=== PATIENT | male | born 1960 | race African-American/Black ===

== ENCOUNTER 2023-11-08 10:27 | Inpatient (IN) | payer OTHER ==
[2023-11-08 11:35] VITALS: BMI 28.8
[2023-11-08] MEDS ORDERED: BENZONATATE 200 MG CAPSULE PO PRN (12:15)
[2023-11-08] MEDS ORDERED: POLYETHYLENE GLYCOL (HEALTHYLAX) 3350 17 GM PACKET PO PRN (12:15)
[2023-11-08] MEDS ORDERED: BENZOCAINE/MENTHOL (CHLORASEPTIC ) LOZENGE MM PRN (12:15)
[2023-11-08] MEDS ORDERED: guaiFENesin 600 MG TABLET.ER (FP) PO PRN (12:15)
[2023-11-08] MEDS ORDERED: MAGNESIUM HYDROX 2400MG/30ML ORAL SUSPENSION 30 ML CUP PO PRN (12:15)
[2023-11-08] MEDS ORDERED: IBUPROFEN 600 MG TABLET (FP) PO PRN (12:15)
[2023-11-08] MEDS ORDERED: METHOCARBAMOL 500 MG TABLET PO PRN (12:15)
[2023-11-08] MEDS ORDERED: NALOXONE HCL 0.4 MG/ML VIAL IM PRN (12:15)
[2023-11-08] MEDS ORDERED: hydrOXYzine PAMOATE 25 MG CAPSULE (FP) PO PRN (12:15)
[2023-11-08] MEDS ORDERED: BISMUTH SUBSALICYLATE 262 MG/15 ML BTL PO PRN (12:15)
[2023-11-08] MEDS ORDERED: IBUPROFEN 400 MG TABLET (FP) PO PRN (12:15)
[2023-11-08] MEDS ORDERED: MAG HYDROX/AL HYDROX/SIMETH 30 ML UNIT-DOSE CUP PO PRN (12:15)
[2023-11-08] MEDS ORDERED: NALOXONE (NARCAN) HCL 4 MG/0.1 ML SPRAY NS PRN (12:15)
[2023-11-08] MEDS ORDERED: DICYCLOMINE HCL 10 MG CAPSULE PO PRN (12:15)
[2023-11-08] MEDS ORDERED: LORazepam 2 MG TABLET PO PRN (12:22)
[2023-11-08] MEDS ORDERED: PRENATAL VITAMINS W/ FOLIC ACID TABLET (FP) PO ONE (14:12)
[2023-11-08] MEDS: PRENATAL VITAMINS W/ FOLIC ACID TABLET (FP) PO SCH (14:14)
[2023-11-08] MEDS: diazePAM 5 MG TABLET PO SCH (17:55)
[2023-11-08] MEDS: LOPERAMIDE HCL 2 MG CAPSULE PO PRN (18:00)
[2023-11-08] MEDS: FAMOTIDINE 20 MG TABLET PO PRN (18:12)
[2023-11-08] MEDS: SUCRALFATE 1 GM TABLET (FP) PO SCH (19:00)
[2023-11-08] MEDS: RIVAROXABAN 20 MG TABLET PO SCH (19:30)
[2023-11-08] MEDS: THIAMINE 100 MG TABLET PO SCH (22:35)
[2023-11-08] MEDS: ATORVASTATIN CA 80 MG TABLET (FP) PO SCH (22:35)
[2023-11-08] MEDS: QUEtiapine FUMARATE 100 MG TABLET (FP) PO PRN (22:36)
[2023-11-09] MEDS: DIPHENOXYLATE 2.5/ATROPINE.025 1 COMBO TABLET PO ONE (09:39)
[2023-11-09] MEDS: ASPIRIN 81 MG CHEWABLE TABLETS PO SCH (10:05)
[2023-11-09] MEDS: amLODIPine BESYLATE 10 MG TABLET (FP) PO SCH (10:05)
[2023-11-09 11:26] LABS: HEMATOCRIT 40.5 % (35.4-49); HEMOGLOBIN 13.9 GM/dL (11.7-16.9); MCH 32.8 pg (25.7-33.7); MCHC 34.2 g/dl (32.0-35.9); MEAN CELL VOLUME 95.7 fl (80-96); MEAN PLT VOLUME 7.7 fl (7.5-11.1); PLATELET COUNT 146 10^3/uL (134-434); RBC 4.23 M/mm3 (4.00-5.60); RDW 13.3 % (11.9-15.9); WHITE BLOOD COUNT 4.2 K/mm3 (4.0-10.0)
[2023-11-09 11:54] LABS: ALBUMIN 3.1 g/dl (3.4-5.0); ANION GAP 8 mmol/L (4-13); BLOOD UREA NITROGEN 7.6 mg/dL (7-18); CALCIUM 8.5 mg/dL (8.5-10.1); CHLORIDE 111 mmol/L (98-107); CO2 23 mmol/L (21-32); GLUCOSE,RANDOM 98 mg/dL (74-106); POTASSIUM 3.4 mmol/L (3.5-5.1); SODIUM 142 mmol/L (136-145)
[2023-11-09 11:57] LABS: BILIRUBIN,TOTAL 0.2 mg/dL (0.2-1); SGOT/AST 33 U/L (15-37); SGPT/ALT 30 U/L (13-61); TOT PROT 6.3 g/dl (6.4-8.2)
[2023-11-09 11:58] LABS: ALK PHOS 112 U/L (45-117)
[2023-11-09] MEDS: POTASSIUM CHLORIDE ORAL LIQUID 20 MEQ/15 ML PO ONE (12:44)
[2023-11-09] MEDS: QUEtiapine FUMARATE 100 MG TABLET (FP) PO SCH (22:07)
[2023-11-10] MEDS: diazePAM 5 MG TABLET PO SCH (06:09)
[2023-11-10] MEDS: ACETAMINOPHEN 325 MG TABLET (FP) PO PRN (07:59)
[2023-11-10] MEDS: ONDANSETRON *ODT* 4 MG TABLET SL PRN (09:57)
[2023-11-10] MEDS: diazePAM 5 MG TABLET PO PRN (17:33)
[2023-11-11] MEDS: diazePAM 5 MG TABLET PO SCH (05:57)
[2023-11-12] MEDS: diazePAM 5 MG TABLET PO ONE (05:52)
[2023-11-12 06:28] VITALS: RESP 16; TEMP 98.4
[2023-11-12 09:25] VITALS: BP 124/74; PULSE 90
== END 2023-11-12 10:00 | disposition home or self-care (01) | DRG 775 ==
LOC: YASAS 10:27 → Y6N 13:23
PROVIDERS: ADMIT Allergy & Immunology; ATTEND Psychiatry & Neurology Pain Medicine
PROC: HZ2ZZZZ Detoxification Services for Substance Abuse Treatment (ICD-10-PCS; principal; 2023-11-08)
DX: F10.230 Alcohol dependence with withdrawal, uncomplicated (principal); F10.282 Alcohol dependence with alcohol-induced sleep disorder; F10.24 Alcohol dependence with alcohol-induced mood disorder; F31.9 Bipolar disorder, unspecified; F43.10 Post-traumatic stress disorder, unspecified; F41.9 Anxiety disorder, unspecified; I25.10 Atherosclerotic heart disease of native coronary artery without angina pectoris; I10 Essential (primary) hypertension; I25.2 Old myocardial infarction; Z95.5 Presence of coronary angioplasty implant and graft; K21.9 Gastro-esophageal reflux disease without esophagitis; Z62.810 Personal history of physical and sexual abuse in childhood
CPT/HCPCS: 36415; 80053; 80305; 80307; 84132; 85027; 86780; 93005; 93010; Q0162